=== PATIENT | male | born 1960 | race Caucasian/White ===

== ENCOUNTER 2018-12-26 10:06 | Inpatient (IN) | payer MEDICAID ==
[~2018-12-26] VITALS: Ht 363.2 cm; Wt 80.8 kg
[2018-12-26] MEDS ORDERED: SODIUM CHLORIDE 0.9% 1,000 ML IV ONE (11:45)
[2018-12-26 12:11] LABS: BG CARBOXYHEMOGLOBIN 1.1 % (0.5-1.5); BG DEOXYHEMOGLOBIN 45.6 % (0.0-5.0); BG FRACTION INSPIRED OXYGEN 21; BG HCO3 ACT 21.8 mmol/L (22.0-26.0); BG METHEMOGLOBIN 0.1 % (0.0-1.5); BG OXYGEN SATURATION 53.8 % (92.0-98.5); BG OXYHEMOGLOBIN 53.2 % (94.0-97.0); BG PH 7.424 (7.350-7.450); BG PO2 31.8 mmHg (75.0-100.0); BG SAMPLE SITE RIGHT BRACHIAL; BG TOTAL HEMOGLOBIN 13.1 g/dL (12.0-18.0); BG VENT MODE ROOM AIR
[2018-12-26 12:13] LABS: CLARITY URINE CLEAR (CLEAR); COLOR URINE AMBER (YELLOW); KETONES URINE TRACE (NEGATIVE); LEUKOCYTE ESTERASE URINE NEGATIVE (NEGATIVE); NITRITE URINE NEGATIVE (NEGATIVE); OCCULT BLOOD URINE NEGATIVE (NEGATIVE); PROTEIN URINE 1+ (NEGATIVE); SPECIFIC GRAVITY URINE 1.017 (1.005-1.030)
[2018-12-26] MEDS ORDERED: CHLORDIAZEPOXIDE 25MG CAPSULE PO ONE ×2 (12:15→14:00)
[2018-12-26] MEDS ORDERED: ONDANSETRON HCL 4MG/2ML INJ IV ONE (12:15)
[2018-12-26] MEDS ORDERED: LORAZEPAM 2MG/ML CPJ IV ONE ×2 (12:15→14:00)
[2018-12-26 12:17] LABS: BASOPHILS % 1.7 % (0.0-2.0); EOSINOPHILS % 0.8 % (0.0-5.0); HEMATOCRIT. 35.9 % (42.0-52.0); LYMPHOCYTES % 22.7 % (20.0-50.0); MEAN CORPUSCULAR HEMOGLOBIN 36.9 pg (28.0-32.0); MEAN CORPUSCULAR VOLUME 110.6 fL (80.0-94.0); MEAN PLATELET VOLUME 9.7 fl (7.4-10.4); NEUTROPHILS % 67.8 % (40.0-76.0); PLATELET 130 x1000/uL (130-400); RED BLOOD CELL COUNT 3.25 mill/uL (4.7-6.1); RED CELL DISTRIBUTION WIDTH 17.2 % (11.6-14.6)
[2018-12-26 12:21] LABS: CHLORIDE 108 mEq/L (98-107)
[2018-12-26 12:48] LABS: *AMPHETAMINES SCREEN URINE NEGATIVE (NEGATIVE); *BARBITURATES SCREEN URINE NEGATIVE (NEGATIVE); *BENZODIAZEPINES SCREEN URINE PRESUMTIVE POSITIVE (NEGATIVE); *COCAINE SCREEN URINE NEGATIVE (NEGATIVE); METHADONE URINE SCREEN NEGATIVE (NEGATIVE); OPIATES URINE SCREEN NEGATIVE (NEGATIVE)
[2018-12-26 12:49] LABS: CANNABINOID URINE SCREEN NEGATIVE (NEGATIVE); PHENCYCLIDINE URINE SCREEN NEGATIVE (NEGATIVE)
[2018-12-26 13:21] LABS: ETHANOL BLOOD 124 mg/dL
[2018-12-26] MEDS ORDERED: ONDANSETRON HCL 4MG/2ML INJ IV PRN (14:45)
[2018-12-26] MEDS ORDERED: DOCUSATE SODIUM 100MG CAPSULE PO PRN (14:45)
[2018-12-26] MEDS ORDERED: MAGNESIUM/ALUMINUM HYDROXIDE/SIMETHICONE 30ML UDC PO PRN (14:45)
[2018-12-26] MEDS ORDERED: DIPHENHYDRAMINE 50MG/ML VIAL IV PRN (14:45)
[2018-12-26] MEDS ORDERED: ACETAMINOPHEN 325MG TABLET PO PRN (14:45)
[2018-12-26] MEDS ORDERED: IPRATROPIUM/ALBUTEROL 0.5-3(2.5)MG/3ML NEB INH PRN (14:45)
[2018-12-26] MEDS ORDERED: LORAZEPAM 2MG/ML CPJ IV PRN (14:45)
[2018-12-26] MEDS ORDERED: CLONIDINE 0.1MG TABLET PO PRN (14:45)
[2018-12-26] MEDS ORDERED: GUAIFENESIN 200MG/10ML SUGAR FREE UDC PO PRN (14:45)
[2018-12-26 15:28] LABS: PHOSPHORUS 3.1 mg/dL (2.5-4.9)
[2018-12-26] MEDS: SODIUM CHLORIDE 0.9% 1,000 ML IV SCH (15:30)
[2018-12-26 15:31] LABS: T4 FREE 0.87 ng/dL (0.76-1.46)
[2018-12-26 15:57] LABS: HEPATITIS B SURFACE ANTIGEN NEGATIVE
[2018-12-26 16:26] LABS: HEPATITIS A AB IGM NEGATIVE (NEGATIVE)
[2018-12-26] MEDS ORDERED: MAGNESIUM 4 G PREMIX 100 ML IV NR (16:30)
[2018-12-26 21:14] VITALS: BP 138/84
[2018-12-26] MEDS: CHLORDIAZEPOXIDE 25MG CAPSULE PO SCH (22:14)
[2018-12-26 23:20] LABS: CREATINE KINASE 46 IU/L (39-308)
[2018-12-26 23:21] LABS: CREATINE KINASE MB FRACTION < 1.0 ng/mL (0.5-3.6)
[2018-12-27] VITALS: BP 135/80
[2018-12-27] MEDS: SODIUM CHLORIDE 0.9% 1,000 ML IV SCH ×2 (03:09→15:39)
[2018-12-27 04:00] VITALS: BP 141/89
[2018-12-27] MEDS: CHLORDIAZEPOXIDE 25MG CAPSULE PO SCH ×3 (05:32→21:03)
[2018-12-27 06:37] LABS: EOSINOPHILS % 0.5 % (0.0-5.0); HEMATOCRIT. 32.1 % (42.0-52.0); HEMOGLOBIN. 10.9 g/dL (14.0-18.0); LYMPHOCYTES % 22.4 % (20.0-50.0); MEAN CORPUSCULAR HEMOGLOBIN 37.6 pg (28.0-32.0); MEAN CORPUSCULAR VOLUME 110.3 fL (80.0-94.0); MEAN PLATELET VOLUME 9.2 fl (7.4-10.4); MONOCYTES % 6.7 % (2.0-8.0); NEUTROPHILS % 69.4 % (40.0-76.0); PLATELET 131 x1000/uL (130-400); RED BLOOD CELL COUNT 2.91 mill/uL (4.7-6.1)
[2018-12-27 07:00] LABS: CHLORIDE 109 mEq/L (98-107)
[2018-12-27 07:10] LABS: CREATINE KINASE 37 IU/L (39-308); HDL CHOLESTEROL 9 mg/dL (40-59)
[2018-12-27 07:13] LABS: LDL CHOLESTEROL 167 mg/dL (5-100)
[2018-12-27 07:18] LABS: CREATINE KINASE MB FRACTION < 1.0 ng/mL (0.5-3.6)
[2018-12-27 08:00] VITALS: BP 136/81
[2018-12-27] MEDS ORDERED: POTASSIUM CHLORIDE 20MEQ TABLET SR PO SCH (09:15)
[2018-12-27] MEDS ORDERED: POTASSIUM CHLORIDE INJ 40 MEQ in DEXT 5% WATER 250 ML IV SCH (11:00)
[2018-12-27 12:00] VITALS: BP 145/90
[2018-12-27 15:52] LABS: PLATELET ESTIMATE NORMAL
[2018-12-27 16:00] VITALS: BP 140/90
[2018-12-27 19:46] LABS: CHLORIDE 106 mEq/L (98-107)
[2018-12-27 20:00] VITALS: BP 112/84
[2018-12-27 21:06] LABS: FOLIC ACID (FOLATE) SERUM 3.4 ng/mL (>5.38)
[2018-12-28] VITALS: BP 126/90
[2018-12-28] MEDS: SODIUM CHLORIDE 0.9% 1,000 ML IV SCH ×2 (03:34→16:39)
[2018-12-28 04:00] VITALS: BP 133/88
[2018-12-28 04:13] LABS: HIV SCREEN 4G Non Reactive (Non Reactive)
[2018-12-28] MEDS: CHLORDIAZEPOXIDE 25MG CAPSULE PO SCH ×3 (05:14→21:29)
[2018-12-28 08:00] VITALS: BP 122/94
[2018-12-28 12:00] VITALS: BP 129/90
[2018-12-28] MEDS ORDERED: MAGNESIUM 2 G PREMIX 50 ML IV NR (14:00)
[2018-12-28 16:00] VITALS: BP 131/89
[2018-12-28 20:00] VITALS: BP 137/96
[2018-12-28] MEDS: LACTULOSE 20G/30ML UDC PO SCH (21:29)
[2018-12-29] VITALS (7 sets, daily range): BP systolic 118–139; BP diastolic 70–95
[2018-12-29] MEDS: SODIUM CHLORIDE 0.9% 1,000 ML IV SCH (05:09)
[2018-12-29] MEDS: CHLORDIAZEPOXIDE 25MG CAPSULE PO SCH ×2 (05:37→13:42)
[2018-12-29] MEDS: LACTULOSE 20G/30ML UDC PO SCH ×2 (05:38→14:04)
[2018-12-29 07:02] LABS: BASOPHILS % 1.2 % (0.0-2.0); EOSINOPHILS % 0.3 % (0.0-5.0); HEMATOCRIT. 37.2 % (42.0-52.0); MEAN CORPUSCULAR VOLUME 114.4 fL (80.0-94.0); MEAN PLATELET VOLUME 10.3 fl (7.4-10.4); MONOCYTES % 7.2 % (2.0-8.0); NEUTROPHILS % 72.3 % (40.0-76.0); PLATELET 136 x1000/uL (130-400); RED BLOOD CELL COUNT 3.25 mill/uL (4.7-6.1); RED CELL DISTRIBUTION WIDTH 17.4 % (11.6-14.6)
[2018-12-29 07:11] LABS: CHLORIDE 107 mEq/L (98-107)
[2018-12-29] MEDS ORDERED: FOLIC ACID/VITAMIN B COMP W-C TABLET PO SCH (09:00)
== END 2018-12-29 19:00 | DRG 279 ==
LOC: ER 10:06 → 7WST 14:26 → EDBEDREQ 14:29 → ENRESERV 20:28 → 7WST 23:20
PROVIDERS: ADMIT Internal Medicine; ATTEND Internal Medicine
DX: K72.90 Hepatic failure, unspecified without coma (principal); E43 Unspecified severe protein-calorie malnutrition; F10.231 Alcohol dependence with withdrawal delirium; E87.2 Acidosis; E83.42 Hypomagnesemia; E83.51 Hypocalcemia; E87.6 Hypokalemia; D53.9 Nutritional anemia, unspecified; I10 Essential (primary) hypertension; E05.90 Thyrotoxicosis, unspecified without thyrotoxic crisis or storm; E53.8 Deficiency of other specified B group vitamins; F10.229 Alcohol dependence with intoxication, unspecified; F17.210 Nicotine dependence, cigarettes, uncomplicated; K30 Functional dyspepsia; K59.00 Constipation, unspecified; R00.0 Tachycardia, unspecified
CPT/HCPCS: 36415; 36600; 71045; 80048; 80061; 80076; 80305; 80320; 82140; 82375; 82550; 82553; 82607; 82746; 82805; 83036; 83605; 83735; 84100; 84439; 84443; 84481; 84484; 86705; 86709; 86803; 87340; 87389; 93005; 93970; 96361; 96365; 96366; 96375; 97162; 97166; 99285; C1893; J2060; J2405; J3475; J3480; J7030; J7060; G0480